=== PATIENT | female | born 1995 | race Caucasian/White ===

== ENCOUNTER → 2018-07-03 | Outpatient (CLI) | payer BC | END | disposition home or self-care (01) | LOC: LAB SHORT 11:42 → LAB 11:42 | PROVIDERS: Obstetrics & Gynecology | DX: Z12.4 Encounter for screening for malignant neoplasm of cervix (principal) | CPT/HCPCS: 87624; 87625; G0123 ==

== ENCOUNTER → 2018-07-18 | Outpatient (CLI) | payer BC | END | disposition home or self-care (01) | LOC: PLD 07:29 → LAB SHORT 07:29 | DX: R87.810 Cervical high risk human papillomavirus (HPV) DNA test positive (principal); R87.610 Atypical squamous cells of undetermined significance on cytologic smear of cervix (ASC-US) | CPT/HCPCS: 88305 ==

== ENCOUNTER → 2019-03-21 | Outpatient (CLI) | payer OTHER, SELFPAY | END | disposition home or self-care (01) | LOC: LAB 14:42 → LAB SHORT 14:42 | DX: R30.0 Dysuria (principal) | CPT/HCPCS: 87077; 87086; 87186 ==

== ENCOUNTER 2019-08-22 18:29 | Emergency (ER) | payer OTHER, SELFPAY ==
[~2019-08-22] VITALS: Ht 162.6 cm; Wt 53.5 kg
[2019-08-22 19:15] LABS: BASOPHILS ABSOLUTE AUTO 0.08 K/mm3 (0.00-0.23); BASOPHILS PERCENT AUTO 1 % (0-2); EOSINOPHILS ABSOLUTE AUTO 0.32 K/mm3 (0.00-0.68); EOSINOPHILS PERCENT AUTO 3 % (0-6); Hematocrit 38.9 % (33.0-51.0); Hemoglobin 12.8 g/dL (11.5-16.0); IMMATURE GRAN ABSOLUTE AUTO 0.03 K/mm3 (0.00-0.10); IMMATURE GRAN PERCENT AUTO 0 % (0-1); LYMPHOCYTES PERCENT AUTO 26 % (21-46); MONOCYTES ABSOLUTE AUTO 0.58 K/mm3 (0.16-1.47); MONOCYTES PERCENT AUTO 6 % (4-13); Mean Corpuscular HGB 29.6 pg (26.0-34.0); Mean Corpuscular HGB Conc 32.9 g/dL (31.5-36.5); Mean Corpuscular Volume 90 fL (80-100); Mean Platelet Volume 11.8 fL (9.1-12.4); NEUTROPHILS ABSOLUTE AUTO 6.35 K/mm3 (1.96-9.15); NEUTROPHILS PERCENT AUTO 64 % (41-73); Platelet Count 182 K/mm3 (150-400); RDW Coefficient Variation 12.5 % (11.7-14.2); RDW Standard Deviation 41.6 fL (35.1-46.3); Red Blood Cell Count 4.32 M/mm3 (3.80-5.20); White Blood Cell Count 9.96 K/mm3 (4.00-11.30)
[2019-08-22 19:43] LABS: Alanine Aminotransfer (ALT/SGP 16 U/L (12-78); Albumin, Blood 3.8 g/dL (3.4-5.0); Alk Phos 41 U/L (50-136); Anion Gap 6 mmol/L (6-16); Aspartate Aminotrans (AST/SGOT 26 U/L (12-37); Bilirubin, Total 0.5 mg/dL (0.1-1.0); Blood Urea Nitrogen 7 mg/dL (8-24); Bun/Creatinine Ratio 11.3 (12.0-20.0); CO2, Blood 23 mmol/L (21-32); Calcium, Blood 8.6 mg/dL (8.5-10.1); Chloride, Blood 108 mmol/L (98-108); Creatinine, Blood 0.62 mg/dL (0.40-1.00); Globulin, Blood 3.7 g/dL (2.2-4.0); Glomerular Filtration Rate >60 (60-); Glucose, Blood 106 mg/dL (70-99); Potassium, Blood 3.7 mmol/L (3.5-5.5); Sodium, Blood 137 mmol/L (136-145); Total Protein, Blood 7.5 g/dL (6.4-8.2)
[2019-08-22 21:36] LABS: Prothrombin Time Results 10.7 Sec (9.7-11.5)
== END 2019-08-22 21:48 | disposition home or self-care (01) ==
LOC: ER 18:29
PROVIDERS: Emergency Medicine
DX: O03.4 Incomplete spontaneous abortion without complication (principal)
CPT/HCPCS: 36415; 80053; 85025; 85610; 86900; 86901; 96361; 96374; 96375; 99284-25; J2210; J2270; J7030

== ENCOUNTER 2021-06-21 18:39 | Emergency (ER) | payer OTHER ==
[~2021-06-21] VITALS: Ht 165.1 cm; Wt 65.8 kg
[2021-06-21 20:05] LABS: BASOPHILS ABSOLUTE AUTO 0.02 K/mm3 (0.00-0.23); BASOPHILS PERCENT AUTO 1 % (0-2); EOSINOPHILS PERCENT AUTO 0 % (0-6); Hematocrit 40.4 % (33.0-51.0); Hemoglobin 13.3 g/dL (11.5-16.0); IMMATURE GRAN PERCENT AUTO 0 % (0-1); LYMPHOCYTES ABSOLUTE AUTO 1.13 K/mm3 (0.84-5.20); LYMPHOCYTES PERCENT AUTO 34 % (21-46); MONOCYTES ABSOLUTE AUTO 0.29 K/mm3 (0.16-1.47); MONOCYTES PERCENT AUTO 9 % (4-13); Mean Corpuscular HGB 30.2 pg (26.0-34.0); Mean Corpuscular HGB Conc 32.9 g/dL (31.5-36.5); Mean Corpuscular Volume 92 fL (80-100); NEUTROPHILS ABSOLUTE AUTO 1.88 K/mm3 (1.96-9.15); NEUTROPHILS PERCENT AUTO 57 % (41-73); Platelet Count 159 K/mm3 (150-400); RDW Coefficient Variation 12.6 % (11.7-14.2); RDW Standard Deviation 42.7 fL (35.1-46.3); Red Blood Cell Count 4.41 M/mm3 (3.80-5.20); White Blood Cell Count 3.32 K/mm3 (4.00-11.30)
[2021-06-21 20:22] LABS: Alanine Aminotransfer (ALT/SGP 27 U/L (12-78); Albumin, Blood 4.5 g/dL (3.4-5.0); Albumin/Globulin Ratio 1.3 (0.8-1.8); Alk Phos 46 U/L (50-136); Anion Gap 9 mmol/L (6-16); Aspartate Aminotrans (AST/SGOT 27 U/L (12-37); Bilirubin, Total 0.6 mg/dL (0.1-1.0); Blood Urea Nitrogen 8 mg/dL (8-24); Bun/Creatinine Ratio 11.8 (12.0-20.0); CO2, Blood 25 mmol/L (21-32); Calcium, Blood 8.8 mg/dL (8.5-10.1); Chloride, Blood 106 mmol/L (98-108); Creatinine, Blood 0.68 mg/dL (0.40-1.00); Globulin, Blood 3.4 g/dL (2.2-4.0); Glomerular Filtration Rate >60 (60-); Glucose, Blood 81 mg/dL (70-99); Potassium, Blood 3.4 mmol/L (3.5-5.5); Sodium, Blood 140 mmol/L (136-145); Total Protein, Blood 7.9 g/dL (6.4-8.2)
== END 2021-06-21 22:41 | disposition home or self-care (01) ==
LOC: ER 18:39
PROVIDERS: Physician Assistant
DX: R42 Dizziness and giddiness (principal); R11.0 Nausea; R51.9 Headache, unspecified; B34.9 Viral infection, unspecified; Z20.822 Contact with and (suspected) exposure to COVID-19
CPT/HCPCS: 36415; 80053; 81000; 81025; 85025; 99283; A9270

== ENCOUNTER 2021-06-24 09:04 | Emergency (ER) | payer OTHER ==
[~2021-06-24] VITALS: Ht 165.1 cm; Wt 54.4 kg
== END 2021-06-24 10:38 | disposition home or self-care (01) ==
LOC: ER 09:04
DX: S01.81XA Laceration without foreign body of other part of head, initial encounter (principal); S20.219A Contusion of unspecified front wall of thorax, initial encounter; V89.2XXA Person injured in unspecified motor-vehicle accident, traffic, initial encounter
CPT/HCPCS: 70150; 71046; 93005; 93010; 99284-25; A9270

== ENCOUNTER → 2021-10-27 | Outpatient (CLI) | payer OTHER ==
[2021-10-27 15:23] LABS: BASOPHILS PERCENT AUTO 1 % (0-2); EOSINOPHILS ABSOLUTE AUTO 0.55 K/mm3 (0.00-0.68); EOSINOPHILS PERCENT AUTO 4 % (0-6); Hematocrit 41.1 % (33.0-51.0); Hemoglobin 13.5 g/dL (11.5-16.0); IMMATURE GRAN ABSOLUTE AUTO 0.06 K/mm3 (0.00-0.10); IMMATURE GRAN PERCENT AUTO 0 % (0-1); LYMPHOCYTES ABSOLUTE AUTO 4.39 K/mm3 (0.84-5.20); LYMPHOCYTES PERCENT AUTO 28 % (21-46); MONOCYTES ABSOLUTE AUTO 0.97 K/mm3 (0.16-1.47); MONOCYTES PERCENT AUTO 6 % (4-13); Mean Corpuscular HGB 29.9 pg (26.0-34.0); Mean Corpuscular HGB Conc 32.8 g/dL (31.5-36.5); Mean Corpuscular Volume 91 fL (80-100); Mean Platelet Volume 12.4 fL (9.1-12.4); NEUTROPHILS ABSOLUTE AUTO 9.65 K/mm3 (1.96-9.15); NEUTROPHILS PERCENT AUTO 61 % (41-73); Platelet Count 233 K/mm3 (150-400); RDW Coefficient Variation 13.1 % (11.7-14.2); RDW Standard Deviation 43.4 fL (35.1-46.3); Red Blood Cell Count 4.51 M/mm3 (3.80-5.20); White Blood Cell Count 15.72 K/mm3 (4.00-11.30)
[2021-10-27 15:43] LABS: Albumin, Blood 4.1 g/dL (3.4-5.0); Albumin/Globulin Ratio 1.1 (0.8-1.8); Bilirubin, Total 0.6 mg/dL (0.1-1.0); Bun/Creatinine Ratio 14.1 (12.0-20.0); Calcium, Blood 8.7 mg/dL (8.5-10.1); Creatinine, Blood 0.85 mg/dL (0.40-1.00); Globulin, Blood 3.7 g/dL (2.2-4.0); Potassium, Blood 3.2 mmol/L (3.5-5.5); Thyroid Stimulating Hormone 1.902 uIU/mL (0.360-4.800); Total Protein, Blood 7.8 g/dL (6.4-8.2)
== END | disposition home or self-care (01) ==
LOC: LAB 15:19 → LAB SHORT 15:19
PROVIDERS: Physician Assistant
DX: R55 Syncope and collapse (principal); R53.83 Other fatigue
CPT/HCPCS: 80053; 84443; 85025

== ENCOUNTER 2022-01-04 11:24 | Emergency (ER) | payer OTHER ==
[~2022-01-04] VITALS: Ht 165.1 cm; Wt 52.6 kg
[2022-01-04 11:50] LABS: Source, Urine Clean Catch
[2022-01-04 11:55] LABS: Appearance, Urine Hazy (Clear); Bilirubin, Urine Neg (Neg); Blood, Urine 5+ (Neg); Color, Urine Yellow (P-Yellow); Glucose Qualitative, Urine Neg (Neg); Ketones, Urine Neg (Neg); Leukocyte Esterase, Urine 3+ (Neg); Nitrite, Urine Neg (Neg); Protein, Urine 2+ (Neg); Urobilinogen, Urine NORM (Normal)
[2022-01-04 12:55] LABS: White Blood Cells, Urine 25-50 /hpf (0-5)
[2022-01-04 12:56] LABS: Bacteria Many /hpf; Squamous Epithelial Cells Few /hpf (Few)
[2022-01-04] MEDS ORDERED: Pyridium200 MG PO (13:07)
[2022-01-04] MEDS ORDERED: CEPH500 PO (13:07)
== END 2022-01-04 13:09 | disposition home or self-care (01) ==
LOC: ER 11:24
PROVIDERS: Physician Assistant
DX: N39.0 Urinary tract infection, site not specified (principal); Z79.899 Other long term (current) drug therapy
CPT/HCPCS: 81001

== ENCOUNTER 2022-02-23 08:22 | Emergency (ER) | payer OTHER ==
[~2022-02-23] VITALS: Ht 165.1 cm; Wt 52.6 kg
[~2022-02-23 08:22] MED LIST: CEPH500 PO; Pyridium200 MG PO
[2022-02-23] MEDS ORDERED: BUSPIRONE HCL10 M6 PO (08:49)
[2022-02-23 09:00] LABS: Source, Urine Clean Catch
[2022-02-23 09:02] LABS: Appearance, Urine Hazy (Clear); Bilirubin, Urine Neg (Neg); Blood, Urine 5+ (Neg); Color, Urine Yellow (P-Yellow); Glucose Qualitative, Urine Neg (Neg); Ketones, Urine Neg (Neg); Leukocyte Esterase, Urine 3+ (Neg); Nitrite, Urine Neg (Neg); Protein, Urine 3+ (Neg); Urobilinogen, Urine NORM (Normal)
[2022-02-23 09:11] LABS: Red Blood Cells, Urine TNTC /hpf (0-2); White Blood Cells, Urine TNTC /hpf (0-5)
[2022-02-23 09:12] LABS: Bacteria Few /hpf; Squamous Epithelial Cells Few /hpf (Few)
[2022-02-23] MEDS ORDERED: NITR100CA PO (09:18)
== END 2022-02-23 09:28 | disposition home or self-care (01) ==
LOC: ER 08:22
PROVIDERS: Student in an Organized Health Care Education/Training Program
DX: N39.0 Urinary tract infection, site not specified (principal); Z79.899 Other long term (current) drug therapy
CPT/HCPCS: 81001; 87077; 87086; 87186; A9270

== ENCOUNTER 2022-03-26 10:44 | Emergency (ER) | payer OTHER ==
[~2022-03-26] VITALS: Ht 165.1 cm; Wt 54.4 kg
[~2022-03-26 10:44] MED LIST changes: +BUSPIRONE HCL10 M6 PO; +NITR100CA PO
[2022-03-26] MEDS ORDERED: Nortriptyline H75 MG PO (12:36)
[2022-03-26] MEDS ORDERED: CARVEDILOL3.125 MG PO (12:37)
[2022-03-26 13:16] LABS: Influenza A, PCR NEGATIVE (NEGATIVE); Influenza B, PCR NEGATIVE (NEGATIVE); Resp Syncytial Virus, PCR NEGATIVE (NEGATIVE); SARS-Cov-2 (COVID-19) PCR, MMC NEGATIVE (NEGATIVE)
[2022-03-26] MEDS ORDERED: ONDA4ODT MM (14:18)
== END 2022-03-26 14:30 | disposition home or self-care (01) ==
LOC: ER 10:44
PROVIDERS: Physician Assistant
DX: J06.9 Acute upper respiratory infection, unspecified (principal); Z20.822 Contact with and (suspected) exposure to COVID-19; Z79.899 Other long term (current) drug therapy
CPT/HCPCS: 0241U

== ENCOUNTER 2022-05-06 09:58 | Emergency (ER) | payer OTHER ==
[~2022-05-06] VITALS: Ht 165.1 cm; Wt 72.6 kg
[~2022-05-06 09:58] MED LIST changes: +CARVEDILOL3.125 MG PO; +Nortriptyline H75 MG PO; +ONDA4ODT MM
== END 2022-05-06 10:49 | disposition left against medical advice (07) ==
LOC: ER 09:58
DX: R07.89 Other chest pain (principal); Z79.899 Other long term (current) drug therapy; Z53.21 Procedure and treatment not carried out due to patient leaving prior to being seen by health care provider
CPT/HCPCS: 99281

== ENCOUNTER 2023-04-09 17:38 | Emergency (ER) | payer OTHER ==
[~2023-04-09] VITALS: Ht 165.1 cm; Wt 61.2 kg
[2023-04-09 18:08] VITALS: BP 136/80
[2023-04-09] MEDS ORDERED: CYCL10 PO (18:56)
== END 2023-04-09 19:28 | disposition home or self-care (01) ==
LOC: ER 17:38
DX: M62.838 Other muscle spasm (principal); Z79.899 Other long term (current) drug therapy
CPT/HCPCS: 99283; A9270

== ENCOUNTER → 2023-06-25 | Outpatient (CLI) | payer OTHER ==
[~2023-06-25] MED LIST changes: +CYCL10 PO
== END | disposition home or self-care (01) ==
LOC: LAB SHORT 15:29
DX: L02.411 Cutaneous abscess of right axilla (principal)
CPT/HCPCS: 87070; 87075; 87077; 87147; 87186; 87205

== ENCOUNTER 2024-07-09 06:15 | Inpatient (IN) | payer OTHER ==
[2024-07-09] VITALS (28 sets, daily range): BP systolic 115–241; BP diastolic 63–120
[~2024-07-09] VITALS: Ht 165.1 cm; Wt 79.0 kg
[2024-07-09] MEDS ORDERED: Carboprost Tromethamine 250 MCG/ML 1ML Amp IM PRN (07:55)
[2024-07-09] MEDS ORDERED: Lactated Ringer's 1,000 ML IV SCH ×4 (07:55)
[2024-07-09] MEDS ORDERED: Misoprostol 200 MCG Tab BC PRN (07:55)
[2024-07-09] MEDS ORDERED: FentaNYL 2mcg/ml-Bup 0.1% Epd 250 ML EPI PRN (07:55)
[2024-07-09] MEDS ORDERED: Misoprostol 200 MCG Tab PR PRN (07:55)
[2024-07-09] MEDS ORDERED: ePHEDrine Sulfate 50 MG/ML 1ML Injection XX PRN (07:55)
[2024-07-09] MEDS ORDERED: OXYTOCIN/RINGER'S LACTATE 500 ML IV PRN (07:55)
[2024-07-09] MEDS ORDERED: Acetaminophen 500 MG Tab PO PRN (07:55)
[2024-07-09] MEDS ORDERED: Oxytocin 10 Unit / ML Vial IM PRN (07:55)
[2024-07-09] MEDS ORDERED: OXYTOCIN/RINGER'S LACTATE 500 ML IV SCH ×2 (07:55→08:25)
[2024-07-09] MEDS ORDERED: Tranexamic Acid 100 ML IV SCH (07:55)
[2024-07-09] MEDS ORDERED: Methylergonovine Maleate 0.2MG / ML 1ML Amp IM PRN (07:55)
[2024-07-09] MEDS ORDERED: Ondansetron HCl 2 MG / ML 2ML Vial IV PRN (07:55)
[2024-07-09] MEDS ORDERED: Lactated Ringer's 1,000 ML IV PRN (07:55)
[2024-07-09] MEDS ORDERED: Calcium Carbonate 500 MG Tab Chew PO PRN (08:00)
[2024-07-09 09:24] LABS: BASOPHILS ABSOLUTE AUTO 0.04 K/mm3 (0.00-0.23); BASOPHILS PERCENT AUTO 1 % (0-2); EOSINOPHILS ABSOLUTE AUTO 0.36 K/mm3 (0.00-0.68); EOSINOPHILS PERCENT AUTO 4 % (0-6); Hematocrit 37.7 % (33.0-51.0); Hemoglobin 12.8 g/dL (11.5-16.0); IMMATURE GRAN ABSOLUTE AUTO 0.04 K/mm3 (0.00-0.10); IMMATURE GRAN PERCENT AUTO 1 % (0-1); LYMPHOCYTES ABSOLUTE AUTO 1.87 K/mm3 (0.84-5.20); LYMPHOCYTES PERCENT AUTO 22 % (21-46); MONOCYTES ABSOLUTE AUTO 0.64 K/mm3 (0.16-1.47); MONOCYTES PERCENT AUTO 8 % (4-13); Mean Corpuscular HGB 30.3 pg (26.0-34.0); Mean Corpuscular Volume 89 fL (80-100); NEUTROPHILS ABSOLUTE AUTO 5.64 K/mm3 (1.96-9.15); NEUTROPHILS PERCENT AUTO 66 % (41-73); Platelet Count 174 K/mm3 (150-400); RDW Coefficient Variation 12.5 % (11.7-14.2); RDW Standard Deviation 40.8 fL (35.1-46.3); Red Blood Cell Count 4.22 M/mm3 (3.80-5.20); White Blood Cell Count 8.59 K/mm3 (4.00-11.30)
[2024-07-09 09:30] LABS: Albumin, Blood 2.6 g/dL (3.4-5.0); Albumin/Globulin Ratio 0.6 (0.8-1.8); Bilirubin, Total 0.4 mg/dL (0.1-1.0); Bun/Creatinine Ratio 13.4 (12.0-20.0); Calcium, Blood 8.9 mg/dL (8.5-10.1); Creatinine, Blood 0.52 mg/dL (0.40-1.00); Globulin, Blood 4.1 g/dL (2.2-4.0); Potassium, Blood 3.5 mmol/L (3.5-5.5); Total Protein, Blood 6.7 g/dL (6.4-8.2)
[2024-07-09 09:33] LABS: Mean Platelet Volume 13.2 fL (9.1-12.4)
[2024-07-10] VITALS (14 sets, daily range): BP systolic 106–157; BP diastolic 63–90
[2024-07-10] MEDS ORDERED: Witch Hazel/Glycerin PADS TOP PRN (00:30)
[2024-07-10] MEDS ORDERED: FLU VACC TS2024-25(6MOS UP)/PF 45 MCG/0.5 ML SYRINGE IM ONE (00:30)
[2024-07-10] MEDS ORDERED: Ibuprofen 400 MG Tab PO PRN (00:30)
[2024-07-10] MEDS ORDERED: Benzocaine Topical Anesthetic Spray 60GM TOP PRN (00:30)
[2024-07-10] MEDS ORDERED: Misoprostol 200 MCG Tab PR PRN (00:35)
[2024-07-10] MEDS ORDERED: Acetaminophen 325 MG TABLET PO PRN (00:35)
[2024-07-10] MEDS ORDERED: OXYTOCIN/RINGER'S LACTATE 500 ML IV SCH (00:35)
[2024-07-10] MEDS ORDERED: Lactated Ringer's 1,000 ML IV SCH (00:35)
[2024-07-10] MEDS ORDERED: Methylergonovine Maleate 0.2MG / ML 1ML Amp IM PRN (00:35)
[2024-07-10] MEDS ORDERED: Ketorolac Tromethamine 30mg Vial IV SCH (06:00)
[2024-07-10 06:51] LABS: BASOPHILS ABSOLUTE AUTO 0.04 K/mm3 (0.00-0.23); BASOPHILS PERCENT AUTO 0 % (0-2); EOSINOPHILS ABSOLUTE AUTO 0.33 K/mm3 (0.00-0.68); EOSINOPHILS PERCENT AUTO 2 % (0-6); Hematocrit 32.8 % (33.0-51.0); Hemoglobin 11.4 g/dL (11.5-16.0); IMMATURE GRAN ABSOLUTE AUTO 0.07 K/mm3 (0.00-0.10); IMMATURE GRAN PERCENT AUTO 1 % (0-1); LYMPHOCYTES ABSOLUTE AUTO 1.93 K/mm3 (0.84-5.20); LYMPHOCYTES PERCENT AUTO 14 % (21-46); MONOCYTES ABSOLUTE AUTO 0.88 K/mm3 (0.16-1.47); MONOCYTES PERCENT AUTO 6 % (4-13); Mean Corpuscular HGB 30.8 pg (26.0-34.0); Mean Corpuscular HGB Conc 34.8 g/dL (31.5-36.5); Mean Corpuscular Volume 89 fL (80-100); Mean Platelet Volume 12.9 fL (9.1-12.4); NEUTROPHILS ABSOLUTE AUTO 10.46 K/mm3 (1.96-9.15); NEUTROPHILS PERCENT AUTO 76 % (41-73); Platelet Count 133 K/mm3 (150-400); RDW Coefficient Variation 12.4 % (11.7-14.2); RDW Standard Deviation 40.1 fL (35.1-46.3); White Blood Cell Count 13.71 K/mm3 (4.00-11.30)
[2024-07-10] MEDS ORDERED: Prenatal Vit/FE Fumarate/FA 1 Tab PO SCH (09:00)
[2024-07-11 04:45] VITALS: BP 115/77
[2024-07-11 07:35] VITALS: BP 130/91
[2024-07-11 10:32] VITALS: BP 124/87
--- NOTE | 2024-07-11 11:18 | NUR ---
PRINTED DISCHARGE INSTRUCTIONS, REVIEWED WITH PT. VERBALIZED UNDERSTANDING. ID BANDS MATCHED WITH AND VERFICATION FORM. PT DENIES ADDITIONAL QUESTIONS OR CONCERNS. PT DISCHARGED TO HOME AMBULATORY INTO CARE OF FAMILY.
== END 2024-07-11 10:55 | disposition home or self-care (01) | DRG 807 ==
LOC: OBS 06:15 → BC 07:04
PROVIDERS: ADMIT Obstetrics & Gynecology
PROC: 10E0XZZ Delivery of Products of Conception, External Approach (ICD-10-PCS; principal; 2024-07-10)
PROC: 0KQM0ZZ Repair Perineum Muscle, Open Approach (ICD-10-PCS; 2024-07-10)
DX: O70.1 Second degree perineal laceration during delivery (principal); Z37.0 Single live birth; Z3A.39 39 weeks gestation of pregnancy
CPT/HCPCS: 36415; 51702; 80053; 85025; 86850; 86900; 86901; A9270; J2590; J7120

== ENCOUNTER 2025-02-17 03:47 | Emergency (ER) | payer OTHER ==
[~2025-02-17] VITALS: Ht 167.6 cm; Wt 72.6 kg
[2025-02-17 04:40] VITALS: BP 132/90
== END 2025-02-17 04:51 | disposition home or self-care (01) ==
LOC: ER 03:47
DX: H61.21 Impacted cerumen, right ear (principal)
CPT/HCPCS: 69209; 99282-25